=== PATIENT | male | born 1990 | race Caucasian/White ===

== ENCOUNTER 2020-12-13 05:59 | Emergency (ER) | payer MEDICAID ==
[~2020-12-13] VITALS: Ht 185.4 cm; Wt 106.0 kg
[2020-12-13] MEDS ORDERED: KETOROLAC 30 MG/1 ML ONE (06:45)
[2020-12-13] MEDS ORDERED: ONDANSETRON 2MG/ML, 2ML ONE (06:45)
[2020-12-13] MEDS ORDERED: KETOROLAC 30 MG/1 ML IVPush ONE (07:00)
[2020-12-13] MEDS ORDERED: ONDANSETRON 2MG/ML, 2ML IVPush ONE (07:00)
[2020-12-13] MEDS ORDERED: SODIUM CHLORIDE FLUSH 10ML SYR IVF ONE (07:00)
[2020-12-13] MEDS ORDERED: LACTATED RINGERS 1,000 ML IV ONE (07:00)
--- NOTE | 2020-12-13 07:05 | NUR ---
Report from Sarah CHANG. Pt resting in bed, IVF initiated per MAR. Pt provided water and warm blanket per request. Pt denies other needs. Continuous oxygen and BP Monitors applied, all safety measures observed.
--- NOTE | 2020-12-13 08:02 | NUR ---
Pt resting in bed with eyes closed, resp even and unlabored, NADN.
[2020-12-13 08:50] VITALS: BP 126/68
== END 2020-12-13 08:52 | disposition home or self-care (01) ==
LOC: ED 08:46
DX: R11.2 Nausea with vomiting, unspecified (principal); E86.0 Dehydration; F14.10 Cocaine abuse, uncomplicated; F10.10 Alcohol abuse, uncomplicated; R51.9 Headache, unspecified; R94.31 Abnormal electrocardiogram [ECG] [EKG]; Y90.0 Blood alcohol level of less than 20 mg/100 ml
CPT/HCPCS: 93005; 96361; 96374; 96375; 99284; J1885; J2405; J7120